=== PATIENT | male | born 1960 | race Caucasian/White ===

== ENCOUNTER → 2017-11-04 | Outpatient (CLI) | payer OTHER | END | disposition home or self-care (01) | LOC: RAD 09:34 | DX: M76.51 Patellar tendinitis, right knee (principal); M46.06 Spinal enthesopathy, lumbar region; G89.29 Other chronic pain | CPT/HCPCS: 72100; 73560 ==

== ENCOUNTER → 2017-12-19 | Outpatient (CLI) | payer OTHER | END | disposition home or self-care (01) | LOC: RAD 10:00 | DX: M25.552 Pain in left hip (principal) | CPT/HCPCS: 73502 ==

== ENCOUNTER 2021-10-03 13:01 | Inpatient (IN) | payer OTHER, MEDICARE ==
[~2021-10-03] VITALS: Ht 30.5 cm; Wt 83.6 kg
[2021-10-03] MEDS: POTASSIUM CHLORIDE 20MEQ 100 ML IV SCH ×2 (14:00→21:01)
[2021-10-03] MEDS ORDERED: ONDANSETRON PF 4 MG/2 ML VIAL. IVP ONE (14:15)
[2021-10-03] MEDS ORDERED: IV RINGERS,LACTATED 1000ML 1,000 ML IV ONE (14:15)
[2021-10-03 14:30] LABS: BASO % 1 % (0-3); EOS # 0.1 x10^3/uL (0.0-0.7); EOS % 1 % (0-3); HEMATOCRIT 45.1 % (39.0-53.0); HEMOGLOBIN 15.6 g/dL (13.0-17.5); LYMPH # 1.4 x10^3/uL (1.0-4.8); LYMPH % 27 % (24-48); MEAN CORPUSCULAR HEMOGLOBIN 29 pg (25-35); MEAN CORPUSCULAR HGB CONC 35 g/dL (31-37); MEAN CORPUSCULAR VOLUME 85 fL (79-100); MONO # 0.6 x10^3/uL (0.0-1.1); MONO % 12 % (0-9); NEUT # 3.2 x10^3/uL (1.8-7.7); NEUT % 60 % (31-73); PLATELET COUNT 236 x10^3/uL (140-400); RED BLOOD COUNT 5.31 x10^6/uL (4.30-5.70); RED CELL DISTRIBUTION WIDTH 13.1 % (11.5-14.5); WHITE BLOOD COUNT 5.3 x10^3/uL (4.0-11.0)
--- NOTE | 2021-10-03 14:40 | PHYS DOC ---
Past Medical History Past Medical History: Depression, High Cholesterol, Hypertension Additional Past Medical Histor: PTSD Past Surgical History: Tonsillectomy, Other Additional Past Surgical Histo: L HIP AND KNEE CLEANOUT, CERVICAL SPINE FUSION, rt hip Alcohol Use: Occasionally Drug Use: None General Adult EDM: Chief Complaint: DIARRHEA HPI: HPI: Patient is a 61 year old male who presents with approximately 1 week history of abdominal pain and diarrhea. Patient states that on the first day of his symptoms, last Tuesday or , he did have an episode of emesis. At that time, he believes his symptoms secondary to his depression. He proceeded to go to [facility] for a week and vacation. Patient reports he continued to have watery diarrhea and some episodes of emesis whenever he ate. He states that his diarrhea is watery with "flakes of nothing" and very pungent odor. Patient was treated with oral antibiotics about 3 weeks ago secondary to upper respiratory infection. He is unsure of which antibiotic with which he was brandon ated, but admits he did not take the full course. Patient denies fever, chills, bloody emesis, bloody stool, constipation, recent sick contacts. Review of Systems: Review of Systems: Constitutional: See HPI Eyes: Denies change in visual acuity, visual field deficits or discharge HENT: Denies ear pain, nasal congestion or sore throat Respiratory: Denies cough or shortness of breath Cardiovascular: Denies chest pain, palpitations or edema GI: See HPI : Denies dysuria or hematuria Musculoskeletal: Denies back pain or joint pain Integument: Denies rash or other skin lesion Neurologic: Denies headache, focal weakness or sensory changes Heart Score: C/O Chest Pain: No Current Medications: Current Medications Medications (Trade) Dose Ordered Sig/Susan Route PRN Reason Start Time Stop Time Status Last Admin Dose Admin Ondansetron HCl (Zofran) 4 mg 1X ONCE IVP 10/03/21 14:15 10/03/21 14:16 DC 10/03/21 14:35 Ringer's Solution 1,000 ml @ 1,000 mls/hr 1X ONCE IV 10/03/21 14:15 10/03/21 15:14 DC 10/03/21 14:32 Iohexol (Omnipaque 300 Mg/ml) 75 ml 1X ONCE IV 10/03/21 15:00 4/2/22 15:02 DC 10/03/21 15:15 Allergies: Allergies: Allergies Coded Allergies Type Severity Reaction Last Updated Verified No Known Drug Allergies 10/03/21 No Physical Exam: PE: Constitutional: Well developed, well nourished, no acute distress, non-toxic appearance. HENT: Normocephalic, atraumatic, bilateral external ears normal, oropharynx moist, nose normal. Eyes: EOMI, conjunctiva normal, no discharge. Neck: Normal range of motion, no stridor. Cardiovascular: Heart regular rate and rhythm. No apparent murmurs, rubs or gallops. Lungs & Thorax: Equal thoracic expansion, no increased work of breathing, all lung alvarenga clear to auscultation. Abdomen: Bowel sounds normal, soft, mild diffuse tenderness, no masses. Skin: Warm, dry, no erythema, no rash. Extremities: No cyanosis, no clubbing, ROM intact, no edema. Neurologic: Alert and oriented x4, no focal deficits noted. Current Patient Data: Labs: Laboratory Tests Test 10/03/21 14:22 White Blood Count 5.3 x10^3/uL (4.0-11.0) Red Blood Count 5.31 x10^6/uL (4.30-5.70) Hemoglobin 15.6 g/dL (13.0-17.5) Hematocrit 45.1 % (39.0-53.0) Mean Corpuscular Volume 85 fL (79-100) Mean Corpuscular Hemoglobin 29 pg (25-35) Mean Corpuscular Hemoglobin Concent 35 g/dL (31-37) Red Cell Distribution Width 13.1 % (11.5-14.5) Platelet Count 236 x10^3/uL (140-400) Neutrophils (%) (Auto) 60 % (31-73) Lymphocytes (%) (Auto) 27 % (24-48) Monocytes (%) (Auto) 12 % (0-9) Eosinophils (%) (Auto) 1 % (0-3) Basophils (%) (Auto) 1 % (0-3) Neutrophils # (Auto) 3.2 x10^3/uL (1.8-7.7) Lymphocytes # (Auto) 1.4 x10^3/uL (1.0-4.8) Monocytes # (Auto) 0.6 x10^3/uL (0.0-1.1) Eosinophils # (Auto) 0.1 x10^3/uL (0.0-0.7) Basophils # (Auto) 0.0 x10^3/uL (0.0-0.2) Sodium Level 134 mmol/L (136-145) Potassium Level 2.4 mmol/L (3.5-5.1) Chloride Level 98 mmol/L (98-107) Carbon Dioxide Level 21 mmol/L (21-32) Anion Gap 15 (6-14) Blood Urea Nitrogen 20 mg/dL (8-26) Creatinine 1.0 mg/dL (0.7-1.3) Estimated GFR (Cockcroft-Gault) 76.5 BUN/Creatinine Ratio 20 (6-20) Glucose Level 100 mg/dL (70-99) Calcium Level 9.1 mg/dL (8.5-10.1) Magnesium Level 2.0 mg/dL (1.8-2.4) Total Bilirubin 0.8 mg/dL (0.2-1.0) Aspartate Amino Transf (AST/SGOT) 121 U/L (15-37) Alanine Aminotransferase (ALT/SGPT) 127 U/L (16-63) Alkaline Phosphatase 76 U/L (46-116) Total Protein 8.2 g/dL (6.4-8.2) Albumin 4.4 g/dL (3.4-5.0) Albumin/Globulin Ratio 1.2 (1.0-1.7) Lipase 130 U/L (73-393) Vital Signs: Vital Signs Date Time Temp Pulse Resp B/P (MAP) Pulse Ox O2 Delivery O2 Flow Rate FiO2 10/03/21 16:48 65 20 163/85 (111) 98 Room Air 10/03/21 16:13 73 170/83 (112) 97 Room Air 10/03/21 14:48 63 16 153/86 (108) 96 Room Air 10/03/21 14:18 67 20 169/86 (113) 97 Room Air 10/03/21 13:48 76 20 174/86 (115) 100 Room Air 10/03/21 13:45 98.3 80 28 174/86 (115) 100 Room Air 98.3 EKG: EKG: EKG Interpreted by Dr. Mir at 1616: Regular rate and rhythm 72 bpm with no ectopic beats. Left axis deviation. QT 434 ms/QTc 477 ms. No STEMI. Radiology/Procedures: Radiology/Procedures: PROCEDURE: CT ABD PELV W/ IV CONTRST ONLY CT ABDOMEN+PELVIS W dated 10/03/2021 2:59 PM Indication:Reason: abd pain + watery diarrhea x1 week s/p abx use / Spl. Instructions: OMNI 300 INJ. 75 MLS / History: Comparison: No comparison is available. Technique: CT images were performed using infusion of 75 mL Omnipaque 300. No oral contrast was given. One or more of the following individualized dose reduction techniques were utilized for this examination: 1. Automated exposure control 2. Adjustment of the mA and/or kV according to patient size 3. Use of iterative reconstruction technique Findings: There is minimal dependent atelectasis. The lung bases otherwise are clear. No focal liver parenchymal abnormality is seen. There could be early fatty infilt ration. The gallbladder was distended at the time of the exam, but shows no calcified stones or wall thickening. Spleen appears normal. Both kidneys enhance with contrast. There are large cysts on the left. One cyst in the mid kidney measures about 7.2 cm craniocaudally. The more inferior cyst measures 7.6 cm. A much smaller low-density nodule arises anteriorly from the left kidney. This appears to have a thickened wall. It measures about 1.3 cm across. Internal density averages around 64 Hounsfield units. There is no obstruction. The adrenal glands are not enlarged. The pancreas appears normal. No retroperitoneal or mesenteric adenopathy is seen. There is no apparent abdominal mass or inflammatory process. A normal appendix is shown arising from the cecum. Images through the pelvis show no abnormality of the distal ureters or bladder. No pelvic or inguinal adenopathy is seen. There is no apparent pelvic mass or inflammatory process. There is some diverticulosis of the sigmoid colon without apparent diverticulitis. IMPRESSION: There are large benign-appearing left renal cyst. There is also a small potentially solid nodule arising anteriorly off the left kidney. Renal protocol CT or MRI with and without contrast would be useful for further evaluation. No acute abnormality is seen elsewhere. There is no CT evidence of significant colitis or diverticulitis. Electronically signed by: Francesco Brown Jr., MD (10/03/2021 3:26 PM) [id number] Course & Med Decision Making: Course & Med Decision Making Pertinent Labs and Imaging studies reviewed. (See chart for details) Patient is a 61-year-old male who presents with 1 week history of abdominal pain, vomiting and diarrhea Patient states that his most concerning complaint is his persistent, watery diarrhea. Patient was treated with antibiotics 3 weeks ago for an upper respiratory infection. Work-up today will include labs, urinalysis, CT abdomen pelvis with IV contrast. If possible, I will obtain a stool sample for testing and culture. Patient has critical potassium of 2.4 without other concerning lab abnormalities. Additionally, CT reveals large left renal cyst. No colitis or diverticulitis is seen on CT. IV potassium replacement ordered at 20 mEq/h. Patient is gladly accepted for admission by Dr. Lehman, hospitalist. Jose Carlos Disclaimer: Jose Carlos Disclaimer: This electronic medical record was generated, in whole or in part, using a voice recognition dictation system. Departure Departure Impression: Primary Impression: Antibiotic-associated diarrhea Additional Impressions: Hypokalemia due to excessive gastrointestinal loss of potassium Renal cyst, left Disposition: 09 ADMITTED INPATIENT Admitting Physician: AMADA ([place]) Condition: GUARDED Referrals: MAY KEE MD (PCP) EDGARDO VELAZQUEZ Oct 03, 2021 14:40
[2021-10-03] MEDS ORDERED: KETOROLAC 15 MG/ML VIAL. IVP ONE (14:45)
[2021-10-03 14:49] LABS: ALBUMIN 4.4 g/dL (3.4-5.0); ALBUMIN/GLOBULIN RATIO 1.2 (1.0-1.7); CALCIUM 9.1 mg/dL (8.5-10.1); GFR 76.5; TOTAL BILIRUBIN 0.8 mg/dL (0.2-1.0); TOTAL PROTEIN 8.2 g/dL (6.4-8.2)
[2021-10-03 14:53] LABS: POTASSIUM 2.4 mmol/L (3.5-5.1)
[2021-10-03] MEDS ORDERED: IOHEXOL 300 MG/ML 100ML VIAL. IV ONE (15:00)
[2021-10-03] MEDS ORDERED: POTASSIUM CL 40MEQ IN 0.9%NACL 1,000 ML IV ONE (15:15)
[2021-10-03] MEDS ORDERED: CONTRAST GIVEN. MC PRN (15:15)
--- NOTE | 2021-10-03 15:28 | RAD ---
CT ABDOMEN+PELVIS W dated 10/03/2021 2:59 PM Indication:Reason: abd pain + watery diarrhea x1 week s/p abx use / Spl. Instructions: OMNI 300 INJ. 75 MLS / History: Comparison: No comparison is available. Technique: CT images were performed using infusion of 75 mL Omnipaque 300. No oral contrast was given . One or more of the following individualized dose reduction techniques were utilized for this examinat ion: 1. Automated exposure control 2. Adjustment of the mA and/or kV according to patient size 3. Use of iterative reconstruction technique Findings: There is minimal dependent atelectasis. The lung bases otherwise are clear. No focal liver parenchyma l abnormality is seen. There could be early fatty infiltration. The gallbladder was distended at the time of the exam, but shows no calcified stones or wall thickening. Spleen appears normal. Both kidne ys enhance with contrast. There are large cysts on the left. One cyst in the mid kidney measures abou t 7.2 cm craniocaudally. The more inferior cyst measures 7.6 cm. A much smaller low-density nodule ar ises anteriorly from the left kidney. This appears to have a thickened wall. It measures about 1.3 cm across. Internal density averages around 64 Hounsfield units. There is no obstruction. The adrenal g lands are not enlarged. The pancreas appears normal. No retroperitoneal or mesenteric adenopathy is s een. There is no apparent abdominal mass or inflammatory process. A normal appendix is shown arising from the cecum. Images through the pelvis show no abnormality of the distal ureters or bladder. No pelvic or inguinal adenopathy is seen. There is no apparent pelvic mass or inflammatory process. There is some divertic ulosis of the sigmoid colon without apparent diverticulitis. IMPRESSION: There are large benign-appearing left renal cyst. There is also a small potentially solid nodule saad ing anteriorly off the left kidney. Renal protocol CT or MRI with and without contrast would be usefu l for further evaluation. No acute abnormality is seen elsewhere. There is no CT evidence of significant colitis or diverticuli tis. Electronically signed by: Francseco Brown Jr., MD (10/03/2021 3:26 PM) [id number]
--- NOTE | 2021-10-03 15:34 | PDOC1 ---
History and Physical Date of Admission Date of Admission DATE: 10/03/21 TIME: 15:34 Identification/Chief Complaint Chief Complaint diarrhea Source Source: Patient History of Present Illness History of Present Illness Mr. Kern is a 61-year-old male w/ PMHx PTSD, depression, HLD, HTN who presents to the ED with a week of diarrhea and nausea and vomiting. Has had abdominal pain with diarrhea starting on 09/30/2021 upon awakening 4-9 episodes per days and on started having emesis 2-3 times daily and after every meal. The last food he could hold down was a piece of toast on 10/03/21 in the morning, then his significant other drove him quickly from [facility] to the ED. His diarrhea is explosive, watery, and very foul smelling. Previously has had 2 colonoscopies the most recent of which was late in [address] Schmidt and he had more than 3 polyps, was scheduled to repeat 2 years from now. He did have antibiotic exposure 2 weeks prior to his 1 week vacation in the [facility] to treat sinusitis. No recent sick contacts. Lives with his significant other and multiple dogs. Denies fever, chills, bloody emesis, bloody stool, constipation, recent sick contacts. CT abdomen pelvis by my interpretation with large left renal cyst and fluid filled bowel with no obstruction. Labs with NA 130 4K3.4, BUN 20, CR 1, glucose 100, calcium 9.1, magnesium 2, bilirubin 0.8, AST 121, ALT 127, alkaline phosphatase 76, albumin 4.4, lipase 130, WBC 5.3, Hb 15.6, platelets 236 Admitted for further care Past Medical History Cardiovascular: HTN, Hyperlipidemia Psych: Depression Past Surgical History Past Surgical History L HIP AND KNEE CLEANOUT, CERVICAL SPINE FUSION, rt hip Past Surgical History: Total hip replacement (Right), Total knee replacement (Left), Tonsillectomy Family History Family History: High Cholestrol, Hypertension Social History Smoke: No ALCOHOL: social Drugs: None Current Medications Current Medications Current Medications Ondansetron HCl (Zofran) 4 mg 1X ONCE IVP Last administered on 10/03/21at 14:35; Start 10/03/21 at 14:15; Stop 10/03/21 at 14:16; Status DC Ringer's Solution 1,000 ml @ 1,000 mls/hr 1X ONCE IV Last administered on 10/03/21at 14:32; Start 10/03/21 at 14:15; Stop 10/03/21 at 15:14; Status DC Ketorolac Tromethamine (Toradol 15mg Vial) 15 mg 1X ONCE IVP ; Start 10/03/21 at 14:45; Stop 10/03/21 at 14:46; Status DC Iohexol (Omnipaque 300 Mg/ml) 75 ml 1X ONCE IV Last administered on 10/03/21at 15:15; Start 10/03/21 at 15:00; Stop 10/03/21 at 15:02; Status DC Info (CONTRAST GIVEN -- Rx MONITORING) 1 each PRN DAILY PRN MC SEE COMMENTS; Start 10/03/21 at 15:15; Stop 10/05/21 at 15:14 Potassium Chloride/Sodium Chloride 1,000 ml @ 0 mls/hr Q0M ONCE IV ; Start 10/03/21 at 15:15; Stop 10/03/21 at 15:16; Status Cancel Potassium Chloride/Water 100 ml @ 50 mls/hr Q2H IV ; Start 10/03/21 at 15:30; Stop 10/03/21 at 19:29 Active Scripts Active Allergies Allergies: Coded Allergies: hydrocodone (Verified Adverse Reaction, Unknown, Nausea, 10/04/21) ROS General: YES: Fatigue, Malaise, Appetite; No: Chills, Night Sweats, Other PSYCHOLOGICAL ROS: No: Anxiety, Behavioral Disorder, Concentration difficultie, Decreased libido, Depression, Disorientation, Hallucinations, Hostility, Irritablity, Memory difficulties, Mood Swings, Obsessive thoughts, Physical abuse, Sexual abuse, Sleep disturbances, Suicidal ideation, Other Eyes: No Blurry vision, No Decreased vision, No Double vision, No Dry eyes, No Excessive tearing, No Eye Pain, No Itchy Eyes, No Loss of vision, No Photophobia, No Scotomata, No Uses contacts, No Uses glasses, No Other HEENT: No: Heacaches, Visual Changes, Hearing change, Nasal congestion, Nasal discharge, Oral lesions, Sinus pain, Sore Throat, Epistaxis, Sneezing, Snoring, Tinnitus, Vertigo, Vocal changes, Other ALLERGY AND IMMUNOLOGY: No: Hives, Insect Bite Sensitivity, Itchy/Watery Eyes, Nasal Congestion, Post Nasal Drip, Seasonal Allergies, Other Hematological and Lymphatic: No: Bleeding Problems, Blood Clots, Blood Transfusions, Brusing, Night Sweats, Pallor, Swollen Lymph Nodes, Other ENDOCRINE: No: Breast Changes, Galactorrhea, Hair Pattern Changes, Hot Flashes, Malaise/lethargy, Mood Swings, Palpitations, Polydipsia/polyuria, Skin Changes, Temperature Intolerance, Unexpected Weight Changes, Other Breast: No New/Changing Breast Lumps, No Nipple changes, No Nipple discharge, No Other Respiratory: No: Cough, Hemoptysis, Orthopnea, Pleuritic Pain, Shortness of breath, SOB with excertion, Sputum Changes, Stridor, Tachypnea, Wheezing, Other Cardiovascular: No Chest Pain, No Palpitations, No Orthopnea, No Paroxysmal Noc. Dyspnea, No Edema, No Lt Headedness, No Other Gastrointestinal: Yes Nausea, Yes Vomiting, Yes Abdominal Pain, Yes Diarrhea; No Constipation, No Melena, No Hematochezia, No Other Genitourinary: No Dysuria, No Frequency, No Incontinence, No Hematuria, No Retention, No Discharge, No Urgency, No Pain, No Flank Pain, No Other, No , No , No , No , No , No , No Musculoskeletal: No Gait Disturbance, No Joint Pain, No Joint Stiffness, No Joint Swelling, No Muscle Pain, No Muscular Weakness, No Pain In:, No Swelling In:, No Other Neurological: No Behavorial Changes, No Bowel/Bladder ControlChng, No Confusion, No Dizziness, No Gait Disturbance, No Headaches, No Impaired Coord/balance, No Memory Loss, No Numbness/Tingling, No Seizures, No Speech Problems, No Tremors, No Visual Changes, No Weakness, No Other Skin: No Dry Skin, No Eczema, No Hair Changes, No Lumps, No Mole Changes, No Mottling, No Nail Changes, No Pruritus, No Rash, No Skin Lesion Changes, No Other, No Acne Physical Exam General: Alert, Oriented X3, Cooperative, mild distress HEENT: Atraumatic, PERRLA, EOMI, Mucous membr. moist/pink Lungs: Clear to auscultation, Normal air movement Heart: S1S2, RRR, no thrills, no rubs, no gallops, no murmurs Abdomen: Normal bowel sounds, Soft, No hepatosplenomegaly, No masses, Other (LLQ tender) Rectal Exam: not examined Extremities: No clubbing, No cyanosis, No edema, Normal pulses, No ten derness/swelling Skin: No rashes, No breakdown, No significant lesion Neuro: Normal gait, Normal speech, Strength at 5/5 X4 ext, Normal tone, Sensation intact, Cranial nerves 3-12 NL, Reflexes 2+ Psych/Mental Status: Mental status NL, Mood NL Vitals Vitals Vital Signs Date Time Temp Pulse Resp B/P (MAP) Pulse Ox O2 Delivery O2 Flow Rate FiO2 10/03/21 13:45 98.3 80 28 174/86 (115) 100 Room Air 98.3 Labs Labs Laboratory Tests Test 10/03/21 14:22 White Blood Count 5.3 x10^3/uL (4.0-11.0) Red Blood Count 5.31 x10^6/uL (4.30-5.70) Hemoglobin 15.6 g/dL (13.0-17.5) Hematocrit 45.1 % (39.0-53.0) Mean Corpuscular Volume 85 fL (79-100) Mean Corpuscular Hemoglobin 29 pg (25-35) Mean Corpuscular Hemoglobin Concent 35 g/dL (31-37) Red Cell Distribution Width 13.1 % (11.5-14.5) Platelet Count 236 x10^3/uL (140-400) Neutrophils (%) (Auto) 60 % (31-73) Lymphocytes (%) (Auto) 27 % (24-48) Monocytes (%) (Auto) 12 % (0-9) Eosinophils (%) (Auto) 1 % (0-3) Basophils (%) (Auto) 1 % (0-3) Neutrophils # (Auto) 3.2 x10^3/uL (1.8-7.7) Lymphocytes # (Auto) 1.4 x10^3/uL (1.0-4.8) Monocytes # (Auto) 0.6 x10^3/uL (0.0-1.1) Eosinophils # (Auto) 0.1 x10^3/uL (0.0-0.7) Basophils # (Auto) 0.0 x10^3/uL (0.0-0.2) Sodium Level 134 mmol/L (136-145) Potassium Level 2.4 mmol/L (3.5-5.1) Chloride Level 98 mmol/L (98-107) Carbon Dioxide Level 21 mmol/L (21-32) Anion Gap 15 (6-14) Blood Urea Nitrogen 20 mg/dL (8-26) Creatinine 1.0 mg/dL (0.7-1.3) Estimated GFR (Cockcroft-Gault) 76.5 BUN/Creatinine Ratio 20 (6-20) Glucose Level 100 mg/dL (70-99) Calcium Level 9.1 mg/dL (8.5-10.1) Magnesium Level 2.0 mg/dL (1.8-2.4) Total Bilirubin 0.8 mg/dL (0.2-1.0) Aspartate Amino Transf (AST/SGOT) 121 U/L (15-37) Alanine Aminotransferase (ALT/SGPT) 127 U/L (16-63) Alkaline Phosphatase 76 U/L (46-116) Total Protein 8.2 g/dL (6.4-8.2) Albumin 4.4 g/dL (3.4-5.0) Albumin/Globulin Ratio 1.2 (1.0-1.7) Lipase 130 U/L (73-393) Laboratory Tests Test 10/03/21 14:22 White Blood Count 5.3 x10^3/uL (4.0-11.0) Red Blood Count 5.31 x10^6/uL (4.30-5.70) Hemoglobin 15.6 g/dL (13.0-17.5) Hematocrit 45.1 % (39.0-53.0) Mean Corpuscular Volume 85 fL (79-100) Mean Corpuscular Hemoglobin 29 pg (25-35) Mean Corpuscular Hemoglobin Concent 35 g/dL (31-37) Red Cell Distribution Width 13.1 % (11.5-14.5) Platelet Count 236 x10^3/uL (140-400) Neutrophils (%) (Auto) 60 % (31-73) Lymphocytes (%) (Auto) 27 % (24-48) Monocytes (%) (Auto) 12 % (0-9) Eosinophils (%) (Auto) 1 % (0-3) Basophils (%) (Auto) 1 % (0-3) Neutrophils # (Auto) 3.2 x10^3/uL (1.8-7.7) Lymphocytes # (Auto) 1.4 x10^3/uL (1.0-4.8) Monocytes # (Auto) 0.6 x10^3/uL (0.0-1.1) Eosinophils # (Auto) 0.1 x10^3/uL (0.0-0.7) Basophils # (Auto) 0.0 x10^3/uL (0.0-0.2) Sodium Level 134 mmol/L (136-145) Potassium Level 2.4 mmol/L (3.5-5.1) Chloride Level 98 mmol/L (98-107) Carbon Dioxide Level 21 mmol/L (21-32) Anion Gap 15 (6-14) Blood Urea Nitrogen 20 mg/dL (8-26) Creatinine 1.0 mg/dL (0.7-1.3) Estimated GFR (Cockcroft-Gault) 76.5 BUN/Creatinine Ratio 20 (6-20) Glucose Level 100 mg/dL (70-99) Calcium Level 9.1 mg/dL (8.5-10.1) Magnesium Level 2.0 mg/dL (1.8-2.4) Total Bilirubin 0.8 mg/dL (0.2-1.0) Aspartate Amino Transf (AST/SGOT) 121 U/L (15-37) Alanine Aminotransferase (ALT/SGPT) 127 U/L (16-63) Alkaline Phosphatase 76 U/L (46-116) Total Protein 8.2 g/dL (6.4-8.2) Albumin 4.4 g/dL (3.4-5.0) Albumin/Globulin Ratio 1.2 (1.0-1.7) Lipase 130 U/L (73-393) Images Images CT ABDOMEN+PELVIS W dated 10/03/2021 2:59 PM Indication:Reason: abd pain + watery diarrhea x1 week s/p abx use / Spl. Instructions: OMNI 300 INJ. 75 MLS / History: Comparison: No comparison is available. Technique: CT images were performed using infusion of 75 mL Omnipaque 300. No oral contrast was given. One or more of the following individualized dose reduction techniques were util ized for this examination: 1. Automated exposure control 2. Adjustment of the mA and/or kV according to patient size 3. Use of iterative reconstruction technique Findings: There is minimal dependent atelectasis. The lung bases otherwise are clear. No focal liver parenchymal abnormality is seen. There could be early fatty infiltration. The gallbladder was distended at the time of the exam, but shows no calcified stones or wall thickening. Spleen appears normal. Both kidneys enhance with contrast. There are large cysts on the left. One cyst in the mid kidney measures about 7.2 cm craniocaudally. The more inferior cyst measures 7.6 cm. A much smaller low-density nodule arises anteriorly from the left kidney. This appears to have a thickened wall. It measures about 1.3 cm across. Internal density averages around 64 Hounsfield units. There is no obstruction. The adrenal glands are not enlarged. The pancreas appears normal. No retroperitoneal or mesenteric adenopathy is seen. There is no apparent abdominal mass or inflammatory process. A normal appendix is shown arising from the cecum. Images through the pelvis show no abnormality of the distal ureters or bladder. No pelvic or inguinal adenopathy is seen. There is no apparent pelvic mass or inflammatory process. There is some diverticulosis of the sigmoid colon without apparent diverticulitis. IMPRESSION: There are large benign-appearing left renal cyst. There is also a small potentially solid nodule arising anteriorly off the left kidney. Renal protocol CT or MRI with and without contrast would be useful for further evaluation. No acute abnormality is seen elsewhere. There is no CT evidence of significant colitis or diverticulitis. VTE Prophylaxis Ordered VTE Prophylaxis Devices: Yes VTE Pharmacological Prophylaxi: Yes Assessment/Plan Assessment/Plan Nausea, vomiting, diarrhea - likely antibiotic associated diarrhea, will check for c. difficile, enteric pathogens, ova and parasites. No antibiotics at this time, hold off on immodium until c diff resulted. IVF, liquid diet, IV antiemetics Abdominal pain - likely due to above, IV pain control until vomiting controlled to take PO Transaminitis - likely due to diarrhea, will check for ova and parasites Hypokalemia - due to large GI losses, will replace IV, keep on telemetry with profoundly low K PTSD, depression - cont home meds HLD - cont home statin HTN - cont home meds FEN - LIquid diet PPX - lovenox FULL COD Dispo - inpatient for above Justifications for Admission Other Justification ANITA GUILLORY MD Oct 03, 2021 15:34
[2021-10-03] MEDS ORDERED: ONDANSETRON PF 4 MG/2 ML VIAL. IVP PRN ×2 (15:45→19:00)
--- NOTE | 2021-10-03 17:42 | EKG ---
[facility] [address] [place] [address] Test Date: 2021-10-03 Test Time: 16:11:47 Pat Name: GIULIA SHEPPARD Department: Room: 530 1 Gender: M Tar Man: : 1960 Requested By: EDGARDO VELAZQUEZ Order Number: [id number] Reading MD: Dylan Horton Measurements Intervals [place] Rate: 72 P: 41 MN: 180 QRS: -66 QRSD: 116 T: 16 QT: 434 QTc: 477 Interpretive Statements SINUS RHYTHM ABNORMAL LEFT AXIS DEVIATION QRS(T) CONTOUR ABNORMALITY CONSISTENT WITH INFERIOR INFARCT PROBABLY OLD Electronically Signed On 10-03-2021 21:14:48 CDT by Dylan Horton
[2021-10-03 19:00] VITALS: BP 147/88
[2021-10-03] MEDS ORDERED: ACETAMINOPHEN 325 MG TABLET. PO PRN (19:00)
[2021-10-03] MEDS ORDERED: POTASSIUM BICARB 20 MEQ EFFERVESCENT TABLET. PO ONE (19:00)
[2021-10-03] MEDS: ATORVASTATIN CALCIUM 40 MG TABLET. PO SCH (20:59)
[2021-10-03 23:00] VITALS: BP 152/80
[2021-10-04] MEDS ORDERED: BISMUTH SUBSALICYLATE 262 MG/15 ML ORAL.SUSP 236ML BOTTLE. PO PRN ×3 (00:30→00:34)
[2021-10-04] MEDS ORDERED: DICYCLOMINE HCL 10 MG CAPSULE PO PRN (00:30)
[2021-10-04 03:17] VITALS: BP 128/66
[2021-10-04 07:00] VITALS: BP 121/67
[2021-10-04 08:04] LABS: CREATININE 0.9 mg/dL (0.7-1.3); GFR 86.4
[2021-10-04 08:06] LABS: POTASSIUM 2.9 mmol/L (3.5-5.1)
[2021-10-04] MEDS ORDERED: POTASSIUM BICARB 20 MEQ EFFERVESCENT TABLET. PO ONE (08:30)
[2021-10-04] MEDS: POTASSIUM CHLORIDE 10MEQ 100 ML IV SCH ×4 (08:41→12:00)
[2021-10-04] MEDS: LOSARTAN POTASSIUM 50 MG TABLET. PO SCH (08:46)
--- NOTE | 2021-10-04 08:52 | PDOC ---
[employer] PROGRESS NOTE Date of Service DOS: DATE: 10/04/21 TIME: 08:49 Chief Complaint Chief Complaint Nausea, vomiting, diarrhea - likely antibiotic associated diarrhea, will check for c. difficile, enteric pathogens, ova and parasites. No antibiotics at this time, hold off on immodium until c diff resulted. IVF, liquid diet, IV antiemetics Abdominal pain - likely due to above, IV pain control until vomiting controlled to take PO Transaminitis - likely due to diarrhea, will check for ova and parasites Hypokalemia - due to large GI losses, will replace IV, keep on telemetry with profoundly low K PTSD, depression - cont home meds HLD - cont home statin HTN - cont home meds FEN - Regular diet PPX - lovenox FULL CODE Dispo - inpatient for above History of Present Illness History of Present Illness Mr. Kern is a 61-year-old male w/ PMHx PTSD, depression, HLD, HTN who presents to the ED with a week of diarrhea and nausea and vomiting. Has had abdominal pain with diarrhea starting on 09/30/2021 upon awakening 4-9 episodes per days and on started having emesis 2-3 times daily and after every meal. The last food he could hold down was a piece of toast on 10/03/21 in the morning, then his significant other drove him quickly from [facility] to the ED. His diarrhea is explosive, watery, and very foul smelling. Previously has had 2 colonoscopies the most recent of which was late in [address] Schmidt and he had more than 3 polyps, was scheduled to repeat 2 years from now. He did have antibiotic exposure 2 weeks prior to his 1 week vacation in the [facility] to treat sinusitis. No recent sick contacts. Lives with his significant other and multiple dogs. Denies fever, chills, bloody emesis, bloody stool, constipation, recent sick contacts. CT abdomen pelvis by my interpretation with large left renal cyst and fluid filled bowel with no obstruction. Labs with NA 130 K2.4, BUN 20, CR 1, glucose 100, calcium 9.1, magnesium 2, bilirubin 0.8, AST 121, ALT 127, alkaline phosphatase 76, albumin 4.4, lipase 130, WBC 5.3, Hb 15.6, platelets 236 Admitted for further care 10/04: Had 12 bowel movements overnight. Still cramping. Potassium 2.9 despite replacement. Imodium on hold pending C. difficile results. Initiate Pepto- Bismol and aggressive IV fluid replacement. Telemetry by my interpretation no atrial arrhythmias. Vitals/I&O Vitals/I&O: Vital Signs Date Time Temp Pulse Resp B/P (MAP) Pulse Ox O2 Delivery O2 Flow Rate FiO2 10/04/21 07:00 98.3 56 20 121/67 (85) 99 Room Air 98.3 I & O 10/03/21 10/03/21 10/04/21 15:00 23:00 07:00 Intake Total 1000 ml 340 ml Balance 1000 ml 340 ml Physical Exam General: Alert, Oriented X3, Cooperative, mild distress Abdomen: Normal bowel sounds, Soft, No hepatosplenomegaly, No masses, Other (LLQ tender) Extremities: No clubbing, No cyanosis, No edema, Normal pulses, No tenderness/swelling Skin: No rashes, No breakdown, No significant lesion Labs Labs: Laboratory Tests Test 10/03/21 14:22 10/03/21 15:53 10/04/21 06:55 White Blood Count 5.3 x10^3/uL (4.0-11.0) Red Blood Count 5.31 x10^6/uL (4.30-5.70) Hemoglobin 15.6 g/dL (13.0-17.5) Hematocrit 45.1 % (39.0-53.0) Mean Corpuscular Volume 85 fL (79-100) Mean Corpuscular Hemoglobin 29 pg (25-35) Mean Corpuscular Hemoglobin Concent 35 g/dL (31-37) Red Cell Distribution Width 13.1 % (11.5-14.5) Platelet Count 236 x10^3/uL (140-400) Neutrophils (%) (Auto) 60 % (31-73) Lymphocytes (%) (Auto) 27 % (24-48) Monocytes (%) (Auto) 12 % (0-9) Eosinophils (%) (Auto) 1 % (0-3) Basophils (%) (Auto) 1 % (0-3) Neutrophils # (Auto) 3.2 x10^3/uL (1.8-7.7) Lymphocytes # (Auto) 1.4 x10^3/uL (1.0-4.8) Monocytes # (Auto) 0.6 x10^3/uL (0.0-1.1) Eosinophils # (Auto) 0.1 x10^3/uL (0.0-0.7) Basophils # (Auto) 0.0 x10^3/uL (0.0-0.2) Sodium Level 134 mmol/L (136-145) 135 mmol/L (136-145) Potassium Level 2.4 mmol/L (3.5-5.1) 2.9 mmol/L (3.5-5.1) Chloride Level 98 mmol/L (98-107) 100 mmol/L (98-107) Carbon Dioxide Level 21 mmol/L (21-32) 22 mmol/L (21-32) Anion Gap 15 (6-14) 13 (6-14) Blood Urea Nitrogen 20 mg/dL (8-26) 23 mg/dL (8-26) Creatinine 1.0 mg/dL (0.7-1.3) 0.9 mg/dL (0.7-1.3) Estimated GFR (Cockcroft-Gault) 76.5 86.4 BUN/Creatinine Ratio 20 (6-20) Glucose Level 100 mg/dL (70-99) 90 mg/dL (70-99) Calcium Level 9.1 mg/dL (8.5-10.1) 9.0 mg/dL (8.5-10.1) Magnesium Level 2.0 mg/dL (1.8-2.4) Total Bilirubin 0.8 mg/dL (0.2-1.0) Aspartate Amino Transf (AST/SGOT) 121 U/L (15-37) Alanine Aminotransferase (ALT/SGPT) 127 U/L (16-63) Alkaline Phosphatase 76 U/L (46-116) Total Protein 8.2 g/dL (6.4-8.2) Albumin 4.4 g/dL (3.4-5.0) Albumin/Globulin Ratio 1.2 (1.0-1.7) Lipase 130 U/L (73-393) Troponin I High Sensitivity 23 ng/L (4-75) Assessment and Plan Assessmemt and Plan Problems Medical Problems: (1) Antibiotic-associated diarrhea Status: Acute (2) Hypokalemia due to excessive gastrointestinal loss of potassium Status: Acute (3) Renal cyst, left Status: Acute Comment Review of Relevant I have reviewed the following items natalie (where applicable) has been applied. Medications: Current Medications Medications (Trade) Dose Ordered Sig/Susan Route PRN Reason Start Time Stop Time Status Last Admin Dose Admin Ondansetron HCl (Zofran) 4 mg 1X ONCE IVP 10/03/21 14:15 10/03/21 14:16 DC 10/03/21 14:35 Ringer's Solution 1,000 ml @ 1,000 mls/hr 1X ONCE IV 10/03/21 14:15 10/03/21 15:14 DC 10/03/21 14:32 Ketorolac Tromethamine (Toradol 15mg Vial) 15 mg 1X ONCE IVP 10/03/21 14:45 10/03/21 14:46 DC 10/03/21 15:47 Iohexol (Omnipaque 300 Mg/ml) 75 ml 1X ONCE IV 10/03/21 15:00 10/03/21 15:02 DC 10/03/21 15:15 Potassium Chloride/Water 100 ml @ 50 mls/hr Q2H IV 10/03/21 15:30 10/03/21 19:29 DC 10/03/21 21:01 Atorvastatin Calcium (Lipitor) 40 mg QHS PO 10/03/21 21:00 10/03/21 20:59 Potassium Bicarbonate (Potassium Effervescent Tablet) 40 meq 1X ONCE PO 10/03/21 19:00 10/03/21 19:01 DC 10/03/21 19:00 Dicyclomine HCl (Bentyl) 10 mg PRN QID PRN PO ABDOMINAL CRAMPS 10/04/21 00:30 10/04/21 00:49 Justifications for Admission Other Justification ANITA GUILLORY MD Oct 04, 2021 08:52
[2021-10-04] MEDS: DULoxetine HCL 20 MG CAPSULE.DR PO SCH (09:19)
[2021-10-04 10:21] VITALS: BP 126/68
[2021-10-04 15:00] VITALS: BP 132/73
[2021-10-04 19:00] VITALS: BP 130/76
[2021-10-04] MEDS: ATORVASTATIN CALCIUM 40 MG TABLET. PO SCH (21:24)
[2021-10-04 23:00] VITALS: BP 130/60
[2021-10-05 04:59] LABS: CALCIUM 8.9 mg/dL (8.5-10.1); CREATININE 0.8 mg/dL (0.7-1.3); GFR 98.9; POTASSIUM 3.4 mmol/L (3.5-5.1)
[2021-10-05 07:00] VITALS: BP 132/79
[2021-10-05] MEDS: DULoxetine HCL 20 MG CAPSULE.DR PO SCH (08:23)
[2021-10-05 08:24] VITALS: BP 132/79
[2021-10-05] MEDS: LOSARTAN POTASSIUM 50 MG TABLET. PO SCH (08:24)
[2021-10-05] MEDS ORDERED: POTASSIUM CHLORIDE 20 MEQ TABLET.ER. PO ONE (11:00)
--- NOTE | 2021-10-05 11:44 | NUR ---
Discharge Note: PT DISCHARGED HOME WITH SELF CARE. PT LEFT FACILITY VIA PRIVATE VEHICLE WITH AT 1140. PT STABLE AND ALERT UPON DISCHARGE. PT PIV REMOVED FROM L AC WITHOUT COMPLICATIONS, BANDAGE APPLIED. PT TELE BOX REMOVED. PT EDUCATED ABOUT DISCHARGE INSTRUCTIONS, DISCHARGE MEDICATIONS, AND FOLLOW-UP CARE INSTRUCTIONS. NO CONCERNS VOICED AT THIS TIME. PT LEFT WITH ALL PERSONAL BELONGINGS. GIULIA SHEPPARD Discharge instructions and discharge home medications reviewed with Patient and a copy given. All questions have been answered and understanding verbalized.
== END 2021-10-05 11:40 | disposition home or self-care (01) | DRG 395 ==
LOC: ER 13:01 → 5 NORTH 15:31
PROVIDERS: ADMIT Internal Medicine; ATTEND Internal Medicine
DX: K52.1 Toxic gastroenteritis and colitis (principal); E78.00 Pure hypercholesterolemia, unspecified; E78.5 Hyperlipidemia, unspecified; E87.6 Hypokalemia; F32.A Depression, unspecified; F43.10 Post-traumatic stress disorder, unspecified; I10 Essential (primary) hypertension; N28.1 Cyst of kidney, acquired; T36.95XA Adverse effect of unspecified systemic antibiotic, initial encounter; Z96.641 Presence of right artificial hip joint; Z96.652 Presence of left artificial knee joint; Z82.49 Family history of ischemic heart disease and other diseases of the circulatory system; Z98.1 Arthrodesis status; Y92.89 Other specified places as the place of occurrence of the external cause
CPT/HCPCS: 36415; 74177; 80048; 80053; 83690; 83735; 84484; 85025; 87328; 87329; 87493; 87505; 93005; 96361; 96374; 96375; J1885; J2405; J3480; J7120; Q9967; 99285-25; G0378

== ENCOUNTER → 2021-11-16 | Outpatient (CLI) | payer OTHER, MEDICARE ==
[~2021-11-16] MED LIST: CONTRAST GIVEN. MC PRN; IOHEXOL 300 MG/ML 100ML VIAL. IV ONE
--- NOTE | 2021-11-17 07:47 | KCIC ---
Study: CT of the abdomen with and without contrast Comparison: CT abdomen pelvis 10/03/2021 Clinical Indication: Indeterminate left renal nodule. Technique: Contiguous axial images are obtained from the apex of the diaphragm to the pelvic floor. I mages are obtained in the precontrast, arterial and portal venous phase(s). Sagittal and coronal ref ormations are evaluated. Dose Reduction: One or more of the following individualized dose reduction techniques were utilized f or this examination: 1. Automated exposure control, 2. Adjustment of the mA and/or kV according to p atient size, 3. Use of iterative reconstruction technique FINDINGS: Lung bases: Grossly unremarkable Lower Mediastinum: Grossly unremarkable Liver: There is a well-defined 1.5 x 1.4 cm lesion in segment 8 which is isodense on precontrast imag es and demonstrates peripheral pooling of contrast on the arterial phase and more homogeneous enhance ment on the portal venous phase most consistent with a small, benign hemangioma. Biliary: No intra or extra hepatic biliary ductal dilatation. Gallbladder: Partially fluid distended and grossly unremarkable with no radiographically discernible stones. No pericholecystic fluid. Pancreas: Grossly unremarkable Spleen: Grossly unremarkable Adrenals: Grossly unremarkable Kidneys: Free of any hydronephrosis, nephrolithiasis. Redemonstration of large left renal cysts. The 1.4 cm nodule along the anterior cortex of the left kidney is hyperdense on precontrast images and do es not enhance or washout. Gastroduodenum:Grossly unremarkable. Bowel: No abnormality. Vessels: Mild atherosclerosis of the abdominal aorta without stenosis. Bones: No suspicious osseous lesions. IMPRESSION: Small nodule along the anterior left kidney most consistent with a benign hemorrhagic/proteinaceous c yst. Electronically signed by: Emerson Nieves MD (11/16/2021 2:52 PM) [id number]
== END ==
LOC: KCIC CT 08:27
PROVIDERS: ATTEND Family Medicine
DX: N28.89 Other specified disorders of kidney and ureter (principal); K76.89 Other specified diseases of liver; N28.1 Cyst of kidney, acquired; I70.0 Atherosclerosis of aorta
CPT/HCPCS: 74170; Q9967